=== PATIENT | male | born 1945 | race African-American/Black ===

== ENCOUNTER 2017-12-08 11:20 | Inpatient (IN) | payer OTHER ==
[~2017-12-08] VITALS: Ht 177.8 cm; Wt 78.0 kg
[~2017-12-08 11:20] MED LIST: ASPIR 8181 MG PO; ATENOLOL50 MG PO; DYA PO; FAMOTIDINE20 MG PO; FIORICET1 TAB PO; LOVASTATIN40 MG PO; TENORMIN25 MG PO
[2017-12-08 12:08] VITALS: Ht 177.8 cm; Wt 78.0 kg
[2017-12-08 14:44] LABS: ALBUMIN 3.4 g/dL (3.4-5.0); ALKALINE PHOSPHATASE 44 U/L (46-116); ALT/SGPT 32 U/L (16-63); AST/SGOT 19 U/L (15-37); BILIRUBIN TOTAL 0.4 mg/dL (0.20-1.00); CARBON DIOXIDE 30.5 mmol/L (21-32); CHLORIDE SERUM 104 mmol/L (98-107); CREATININE SERUM 1.3 mg/dL (0.7-1.3); GLUCOSE SERUM 100 mg/dL (74-106); POTASSIUM SERUM 3.5 mmol/L (3.5-5.1); SODIUM SERUM 145 mmol/L (136-145); TOTAL PROTEIN, SERUM 7.1 g/dL (6.4-8.2)
[2017-12-08 14:50] LABS: BASOPHIL % 0.4 % (0-2); PLATELET COUNT 256 x10^3mcL (130-400); RED CELL DISTRIBUTION WIDTH 14.6 % (11.5-14.5)
[2017-12-08 16:56] LABS: FREE T4 0.95 ng/dL (0.76-1.46); FREE THYROXINE INDEX 2.4 ug/dL (1.4-4.5); T4(THYROXINE) 7.4 ug/dL (4.7-13.3)
[2017-12-08 17:19] LABS: MAGNESIUM 1.8 mg/dL (1.8-2.4); PHOSPHOROUS 3.3 mg/dL (2.5-4.9)
[2017-12-08 17:25] LABS: CHOLESTEROL/HDL RATIO 2.3
[2017-12-08 17:45] VITALS: BP 138/78
[2017-12-08 21:42] VITALS: BP 93/53
[2017-12-09 06:24] VITALS: BP 113/64
[2017-12-09 07:31] LABS: BASOPHIL % 0.8 % (0-2); PLATELET COUNT 242 x10^3mcL (130-400); RED CELL DISTRIBUTION WIDTH 13.7 % (11.5-14.5)
[2017-12-09 07:40] LABS: CALCIUM 8.7 mg/dL (8.5-10.1); CARBON DIOXIDE 30.1 mmol/L (21-32); CHLORIDE SERUM 103 mmol/L (98-107); CREATININE SERUM 1.3 mg/dL (0.7-1.3); GLUCOSE SERUM 90 mg/dL (74-106); MAGNESIUM 1.8 mg/dL (1.8-2.4); PHOSPHOROUS 3.2 mg/dL (2.5-4.9); POTASSIUM SERUM 3.6 mmol/L (3.5-5.1); SODIUM SERUM 139 mmol/L (136-145)
[2017-12-09] MEDS ORDERED: PROMETHAZINE D118 M1 PO (08:22)
[2017-12-09] MEDS ORDERED: TOPROL XL25 MG PO (08:22)
[2017-12-09 09:07] LABS: AMPHETAMINE QUAL UR NONE DETECTED (NEG <=1000)
[2017-12-09 09:19] LABS: microscopic required? YES; urine erythrocyte NEGATIVE (NEGATIVE)
[2017-12-09 10:16] VITALS: BP 96/66
[2017-12-09 13:57] LABS: T3 TOTAL 0.87 ng/mL
[2017-12-09 14:42] VITALS: BP 94/60
[2017-12-09 15:00] VITALS: BP 94/60
[2017-12-09 17:38] VITALS: BP 110/65
[2017-12-09 21:00] VITALS: BP 103/57
[2017-12-10 04:50] VITALS: BP 125/74
[2017-12-10 07:57] LABS: CALCIUM 8.5 mg/dL (8.5-10.1); CARBON DIOXIDE 29.7 mmol/L (21-32); CHLORIDE SERUM 105 mmol/L (98-107); CREATININE SERUM 1.1 mg/dL (0.7-1.3); GLUCOSE SERUM 94 mg/dL (74-106); MAGNESIUM 1.9 mg/dL (1.8-2.4); PHOSPHOROUS 3.5 mg/dL (2.5-4.9); POTASSIUM SERUM 3.6 mmol/L (3.5-5.1); SODIUM SERUM 141 mmol/L (136-145)
[2017-12-10 08:14] LABS: BASOPHIL % 0.4 % (0-2); PLATELET COUNT 220 x10^3mcL (130-400); RED CELL DISTRIBUTION WIDTH 14.5 % (11.5-14.5)
[2017-12-10 10:34] VITALS: BP 136/72
[2017-12-10] MEDS ORDERED: CYCLOBENZAPRINE5 MG PO (13:04)
[2017-12-10] MEDS ORDERED: ZES5 PO (13:06)
[2017-12-10] MEDS ORDERED: MUCINEX600 MG PO (13:07)
[2017-12-10] MEDS ORDERED: COL100 PO (13:08)
[2017-12-10] MEDS ORDERED: APAP/HYDROCODON1 T13 PO (13:09)
[2017-12-10] MEDS ORDERED: ESGIC CAPSULE1 EACH PO (13:09)
[2017-12-10 15:53] VITALS: BP 136/72
== END 2017-12-10 16:36 | disposition home or self-care (01) | DRG 202 ==
LOC: ED 11:20 → DU 15:10 → MU 12-10 08:02
PROVIDERS: Emergency Medicine; Family Medicine
DX: J21.8 Acute bronchiolitis due to other specified organisms (principal); N17.0 Acute kidney failure with tubular necrosis; M99.01 Segmental and somatic dysfunction of cervical region; R51 Headache; I10 Essential (primary) hypertension; R73.03 Prediabetes; E78.5 Hyperlipidemia, unspecified; I25.2 Old myocardial infarction; Z68.23 Body mass index [BMI] 23.0-23.9, adult
CPT/HCPCS: 83880; 84439; 94150; J0132; J1885; J2270; J3010; J7030; J7620; Q0092

== ENCOUNTER 2019-08-29 12:19 | Inpatient (IN) | payer OTHER ==
[~2019-08-29] VITALS: Ht 177.8 cm; Wt 53.2 kg
[~2019-08-29 12:19] MED LIST changes: +APAP/HYDROCODON1 T13 PO; +COL100 PO; +CYCLOBENZAPRINE5 MG PO; +ESGIC CAPSULE1 EACH PO; +MUCINEX600 MG PO; +PROMETHAZINE D118 M1 PO; +TOPROL XL25 MG PO; +ZES5 PO
[2019-08-29 13:19] VITALS: Ht 177.8 cm; Wt 53.2 kg
[2019-08-29 14:08] LABS: CALCIUM 8.9 mg/dL (8.5-10.1); CARBON DIOXIDE 26.8 mmol/L (21-32); CHLORIDE SERUM 105 mmol/L (98-107); CREATININE SERUM 1.3 mg/dL (0.7-1.3); GLUCOSE SERUM 102 mg/dL (74-106); POTASSIUM SERUM 4.4 mmol/L (3.5-5.1); SODIUM SERUM 140 mmol/L (136-145)
[2019-08-29 14:11] LABS: PLATELET COUNT 362 x10^3mcL (130-400)
[2019-08-29 14:12] LABS: ALKALINE PHOSPHATASE 68 U/L (46-116); ALT/SGPT 9 U/L (16-63); AST/SGOT 16 U/L (15-37); BILIRUBIN TOTAL 0.2 mg/dL (0.20-1.00); TOTAL PROTEIN, SERUM 6.9 g/dL (6.4-8.2)
[2019-08-29 14:17] LABS: RED CELL DISTRIBUTION WIDTH 16.5 % (11.5-14.5)
[2019-08-29 15:04] LABS: BAND NEUTROPHIL 0 % (0-10); BASOPHIL 0 % (0-2); MONOCYTE 6 % (0-7); SEGMENTED NEUTROPHILS 68 % (37-75)
[2019-08-29 15:05] LABS: rbc morphology (normal/abnorm) ABNORMAL (NORMAL)
[2019-08-29] MEDS ORDERED: OMEPRAZOLE40 M1 PO (16:54)
[2019-08-29] MEDS ORDERED: LASIX20 MG PO (16:55)
[2019-08-29] MEDS ORDERED: COREG CR40 M1 PO (16:55)
[2019-08-29] MEDS ORDERED: KLOR-CON M2020 MEQ PO (16:55)
[2019-08-29 17:00] LABS: PHOSPHOROUS 3.3 mg/dL (2.5-4.9)
[2019-08-29 17:07] LABS: CHOLESTEROL/HDL RATIO 2.7
[2019-08-29 17:08] LABS: FREE T4 1.01 ng/dL (0.76-1.46); FREE THYROXINE INDEX 2.7 ug/dL (1.4-4.5); T4(THYROXINE) 8.2 ug/dL (4.7-13.3)
[2019-08-29 17:30] VITALS: BP 126/75
[2019-08-29 17:58] LABS: T3 TOTAL 0.9 ng/mL
[2019-08-29 18:45] LABS: TOTAL IRON BINDING CAPACITY 396 ug/dL (250-450)
[2019-08-29 18:46] LABS: IRON 14 ug/dL (65-170)
[2019-08-29 18:49] LABS: RED BLOOD CELLS 3.79 M/mm3 (4.52-5.90)
[2019-08-29 19:25] VITALS: BP 113/66
[2019-08-29 19:45] VITALS: BP 126/75
[2019-08-30 00:09] LABS: microscopic required? NO
[2019-08-30 00:17] LABS: urine erythrocyte NEGATIVE (NEGATIVE)
[2019-08-30 00:29] LABS: AMPHETAMINE QUAL UR NONE DETECTED (See below)
[2019-08-30 05:51] VITALS: BP 99/66
[2019-08-30 06:38] LABS: PLATELET COUNT 308 x10^3mcL (130-400)
[2019-08-30 06:59] LABS: CALCIUM 8.5 mg/dL (8.5-10.1); CARBON DIOXIDE 26.4 mmol/L (21-32); CHLORIDE SERUM 105 mmol/L (98-107); CREATININE SERUM 1.1 mg/dL (0.7-1.3); GLUCOSE SERUM 83 mg/dL (74-106); MAGNESIUM 1.9 mg/dL (1.8-2.4); PHOSPHOROUS 3.4 mg/dL (2.5-4.9); SODIUM SERUM 140 mmol/L (136-145)
[2019-08-30 07:26] LABS: RED CELL DISTRIBUTION WIDTH 16.4 % (11.5-14.5)
[2019-08-30 08:14] LABS: BAND NEUTROPHIL 0 % (0-10); BASOPHIL 0 % (0-2); MONOCYTE 9 % (0-7); SEGMENTED NEUTROPHILS 81 % (37-75)
[2019-08-30 08:15] LABS: rbc morphology (normal/abnorm) ABNORMAL (NORMAL)
[2019-08-30 08:17] LABS: ovalocyte/elliptocyte 1+; schistocyte (helmet cell) 1+
[2019-08-30 08:18] LABS: PLATELET MORPHOLOGY PLATELETS NORMAL; burr cell (echinocyte) 2+
[2019-08-30 08:55] VITALS: BP 101/62
[2019-08-30 11:49] VITALS: BP 113/69
[2019-08-30 16:32] VITALS: BP 101/61
[2019-08-30 20:35] VITALS: BP 104/67
[2019-08-31 05:43] VITALS: BP 128/75
[2019-08-31 06:16] LABS: PLATELET COUNT 266 x10^3mcL (130-400)
[2019-08-31 06:22] LABS: CALCIUM 8.6 mg/dL (8.5-10.1); CARBON DIOXIDE 26.7 mmol/L (21-32); CHLORIDE SERUM 107 mmol/L (98-107); CREATININE SERUM 1.1 mg/dL (0.7-1.3); GLUCOSE SERUM 90 mg/dL (74-106); MAGNESIUM 1.8 mg/dL (1.8-2.4); PHOSPHOROUS 3.3 mg/dL (2.5-4.9); POTASSIUM SERUM 4.1 mmol/L (3.5-5.1); SODIUM SERUM 141 mmol/L (136-145)
[2019-08-31 09:05] LABS: SEGMENTED NEUTROPHILS 86 % (37-75)
[2019-08-31 09:06] LABS: MONOCYTE 8 % (0-7)
[2019-08-31 09:07] LABS: rbc morphology (normal/abnorm) ABNORMAL (NORMAL)
[2019-08-31 09:15] VITALS: BP 112/70
[2019-08-31 12:19] VITALS: BP 99/64
[2019-08-31 13:29] VITALS: BP 99/64
[2019-09-01 10:59] LABS: PLATELET MORPHOLOGY PLATELETS NORMAL
== END 2019-08-31 15:20 | disposition home or self-care (01) | DRG 153 ==
LOC: ED 12:19 → DU 16:06
PROVIDERS: Internal Medicine; ADMIT General Practice
DX: J06.9 Acute upper respiratory infection, unspecified (principal); Z68.1 Body mass index [BMI] 19.9 or less, adult; E44.0 Moderate protein-calorie malnutrition; I50.32 Chronic diastolic (congestive) heart failure; E87.6 Hypokalemia; K21.9 Gastro-esophageal reflux disease without esophagitis; I25.10 Atherosclerotic heart disease of native coronary artery without angina pectoris; E78.5 Hyperlipidemia, unspecified; D64.9 Anemia, unspecified; I25.2 Old myocardial infarction; Z87.891 Personal history of nicotine dependence
CPT/HCPCS: 83880; 84439; G0378; J7030; J7620; Q0092